=== PATIENT | male | born 1995 | race Two or more races ===

== ENCOUNTER 2022-04-18 09:48 | Emergency (ER) | payer OTHER ==
[~2022-04-18] VITALS: Ht 177.8 cm; Wt 85.3 kg
[2022-04-18] MEDS ORDERED: ZITHROMAX500 MG PO (12:09)
[2022-04-18] MEDS ORDERED: CLARITIN-D 121 EACH PO (12:09)
== END 2022-04-18 13:56 | disposition home or self-care (01) ==
LOC: ER 09:48
DX: J06.9 Acute upper respiratory infection, unspecified (principal); Z20.822 Contact with and (suspected) exposure to COVID-19

== ENCOUNTER 2022-09-19 08:57 | Outpatient (CLI) | payer OTHER ==
[~2022-09-19 08:57] MED LIST: CLARITIN-D 121 EACH PO; ZITHROMAX500 MG PO
== END 2022-09-19 09:39 | disposition home or self-care (01) ==
LOC: LAB 08:57
DX: R68.89 Other general symptoms and signs (principal); R30.0 Dysuria; E03.9 Hypothyroidism, unspecified

== ENCOUNTER 2022-10-14 10:10 | Outpatient (CLI) | payer OTHER | END 2022-10-14 10:11 | disposition home or self-care (01) | LOC: SONOGRAMA 10:10 | DX: N60.19 Diffuse cystic mastopathy of unspecified breast (principal) ==

== ENCOUNTER 2023-09-20 12:49 | Emergency (ER) | payer OTHER ==
[~2023-09-20] VITALS: Ht 180.3 cm; Wt 81.6 kg
[2023-09-20] MEDS ORDERED: ACETAMINOPHEN WITH CODEINE 1 UDTAB TABLET PO STA (13:46)
== END 2023-09-20 13:55 | disposition home or self-care (01) ==
LOC: ER 12:50
DX: S09.8XXA Other specified injuries of head, initial encounter (principal); W21.89XA Striking against or struck by other sports equipment, initial encounter; Y93.89 Activity, other specified; Y92.89 Other specified places as the place of occurrence of the external cause

== ENCOUNTER 2024-06-07 08:25 | Outpatient (CLI) | payer OTHER | END 2024-06-07 08:34 | disposition home or self-care (01) | LOC: LAB 08:25 | DX: U07.1 COVID-19 (principal); Z03.818 Encounter for observation for suspected exposure to other biological agents ruled out ==